=== PATIENT | female | born 1995 | race African-American/Black ===

== ENCOUNTER 2022-01-02 10:02 | Emergency (ER) | payer OTHER, SELFPAY ==
[2022-01-02 10:20] VITALS: BP 123/73; PULSE 71; RESP 18; TEMP 36.1; O2SAT 100
--- NOTE | 2022-01-02 10:23 | ED.BACK ---
HPI - Back Pain/Injury General Chief Complaint: Back Pain/Injury Stated Complaint: LOWER BACK PAIN X1D Time Seen by Provider: 01/02/22 10:09 History of Present Illness HPI Narrative: 26-year-old female presents to the emergency room today for complaints of low back pain. She denies having any dysuria or hematuria. She says that she had a positive test at the end of last month. She then started having some bleeding and cramping on December 23. She just assumed that she was probably having a miscarriage and did not get checked out at that time. She has not had a test since then. She is no longer having any vaginal bleeding. She describes a weird feeling in her lower abdomen and some occasional cramping. No fever or chills. No nausea or vomiting. No flank pain. Patient is a . She has had 3 abortions and 1 previous natural miscarriage. Related Data Allergies Allergy/AdvReac Type Severity Reaction Status Date / Time cefazolin Allergy Severe Swelling Verified 01/02/22 10:23 Review of Systems Review of Systems: CONSTITUTIONAL: Denies fever, chills, or sweats. EYES: Denies visual changes, redness, or discharge. ENT: Denies rhinorrhea, congestion, sore throat, or otalgia. CARDIOVASCULAR: Denies chest pain, palpitations, or edema. RESPIRATORY: Denies cough or dyspnea. GASTROINTESTINAL: Denies abdominal pain, nausea, vomiting, or diarrhea. GENITOURINARY: Denies dysuria or hematuria. Denies flank pain. No vaginal bleeding or spotting. SKIN: Denies rash or itching. MUSCULOSKELETAL: Low back pain. NEUROLOGIC: Denies headache, numbness, dizziness, or weakness. PSYCHIATRIC: Denies anxiety or depression. Exam Narrative: GENERAL: Well-appearing, well-nourished, and in no acute distress. HEAD: Normocephalic, atraumatic. EYES: PERRLA and EOMI. NECK: Supple. No adenopathy or masses. No carotid bruits or JVD CHEST: Clear to auscultation. No respiratory distress. No wheezes rales or rhonchi HEART: Regular rate and rhythm. No murmur heard. Normal peripheral pulses. ABDOMEN: Soft, nontender, nondistended, normal active bowel sounds. EXTREMITIES: Normal range of motion. No edema. SKIN: Warm, dry, no rash. NEURO: No focal deficits. Alert and oriented x3. PSYCH: Normal mood and affect. Course Vital Signs Vital signs: Vital Signs Temperature 36.1 C L 01/02/22 10:20 Pulse Rate 71 01/02/22 10:20 Respiratory Rate 18 01/02/22 10:20 Blood Pressure 123/73 01/02/22 10:20 Pulse Oximetry 100 01/02/22 10:20 Oxygen Delivery Room Air 01/02/22 10:20 Temperature 36.1 C L 01/02/22 10:20 Pulse Rate 71 01/02/22 10:20 Respiratory Rate 18 01/02/22 10:20 Blood Pressure 123/73 01/02/22 10:20 Pulse Oximetry 100 01/02/22 10:20 Oxygen Delivery Room Air 01/02/22 10:20 MDM - Back Pain/Injury Lab Data Attestation: I reviewed the patient's lab results. Labs: Lab Results 01/02/22 Range/Units 10:40 Urine Color Yellow (Yellow) Urine Appearance Clear (Clear) Urine pH 6.0 (5.0-9.0) Ur Specific [place] 1.020 (1.001-1.035) Urine Protein Negative (Negative) mg/dL Urine Glucose (UA) Negative (Negative) mg/dL Urine Ketones Negative (Negative) mg/dL Ur Blood (Man) Negative (Negative) Urine Nitrate Negative (Negative) Urine Bilirubin Negative (Negative) Urine Urobilinogen 0.2 (<2.0) mg/dL Leukocyte Esterase Rfl Negative (Negative) JOHNNY/UL UCG Bedside Result Negative Reference Range: Negative Discharge Plan Discharge Clinical Impression: Low back pain Patient Disposition: Home, Self-Care Condition: Stable Instructions: Antibiotic Form, Acute Low Back Pain (ED) Additional Instructions: Take Naprosyn and Flexeril as needed for low back pain. Follow-up with your primary care provider or ELECTROLYSIS INVESTIGATOR provider in 2 to 3 days. Prescriptions: New naproxen [Naprosyn] 50
[2022-01-02 10:49] LABS: Appearance Urine Clear (Clear); Bilirubin Urine Negative (Negative); Blood Urine Negative (Negative); Color Urine Yellow (Yellow); Glucose Urine UA Negative (Negative); Ketones Urine Negative (Negative); Leukocyte Esterase Ur Negative LEU/UL (Negative); Nitrate Urine Negative (Negative); Protein Urine Negative (Negative); Urobilinogen Urine 0.2 mg/dL (<2.0)
--- NOTE | 2022-01-02 11:14 | PC.NURSE ---
Per NOTCHING MACHINE OPERATOR request patient's bedside was completed at this time , for the second time. Result is negative. NOTCHING MACHINE OPERATOR notified at this time. Returned to room to find patient not present at this time to inform that second test is confirmed negative.
[2022-01-02 11:34] LABS: Add Urine Microscopic? NO
== END 2022-01-02 11:26 | disposition left against medical advice (07) ==
PROVIDERS: Emergency Provider Nurse Practitioner Family
DX: M54.50 Low back pain, unspecified (principal)
CPT/HCPCS: 81003; 81025; 99283

== ENCOUNTER 2023-04-26 00:09 | Emergency (ER) | payer BC, SELFPAY ==
[2023-04-26 00:11] VITALS: BP 126/65; PULSE 73; RESP 20; TEMP 36.1; O2SAT 100
--- NOTE | 2023-04-26 01:22 | ED.DENTAL ---
HPI - Dental/Oral General Chief complaint: Dental/Oral Stated complaint: Left upper dental pain Time Seen by Provider: 04/26/23 00:33 Source: patient Mode of arrival: ambulatory Limitations: no limitations History of Present Illness HPI Narrative: Patient is a 28-year-old female who presents to the ED with report of left upper dental pain. Patient reports her left upper wisdom tooth, tooth 16 cracked a few days ago. She has had worsening pain over last several days, no improvement with Tylenol and ibuprofen at home. Patient has an appointment with her dentist on Thursday, but states pain became severe tonight which prompted her presentation. Pain worse with chewing/eating. Patient denies difficulty breathing or swelling. Denies vomiting. Denies fevers. Denies drainage from tooth. Related Data Allergies Allergy/AdvReac Type Severity Reaction Status Date / Time cefazolin Allergy Severe Swelling Verified 04/26/23 00:14 Review of Systems Review of Systems: CONSTITUTIONAL: Denies fever, chills, or sweats. ENT: See HPI. RESPIRATORY: Denies dyspnea. GASTROINTESTINAL: Denies vomiting. All systems reviewed & are unremarkable except as noted in HPI and below Exam Narrative: GENERAL: Mildly uncomfortable appearing, well-nourished, non-toxic, in no acute distress. HEAD: Normocephalic, atraumatic. ENT: L upper wisdom tooth, #16, cracked with somewhat jagged edges. No obvious exposed root. TTP along gumline surrounding tooth. No focal abscess or fluctuance. No stridor. No trismus. Tolerating secretions. No other significant dental decay/caries noted. RESPIRATORY: Airway patent, respirations nonlabored. CARDIOVASCULAR: Regular rate and rhythm. MUSCULOSKELETAL: Moves all extremities. No gross deformities. SKIN: Warm, dry, normal color. NEURO: A&O X3. Speech clear. PSYCHIATRIC: Appropriate mood and affect. Normal interaction. Course Vital Signs Vital signs: Vital Signs Temperature 97.0 F L 04/26/23 00:11 Pulse Rate 73 04/26/23 00:11 Respiratory Rate 20 04/26/23 00:11 Blood Pressure 126/65 04/26/23 00:11 Pulse Oximetry 100 04/26/23 00:11 Oxygen Delivery Room Air 04/26/23 00:11 Temperature 97.0 F L 04/26/23 00:11 Pulse Rate 73 04/26/23 00:11 Respiratory Rate 20 04/26/23 00:11 Blood Pressure 126/65 04/26/23 00:11 Pulse Oximetry 100 04/26/23 00:11 Oxygen Delivery Room Air 04/26/23 00:11 MDM - Dental/Oral MDM Narrative Medical decision making narrative: Patient's pain is consistent with dental fracture. There are no focal signs of space-occupying abscess. The patient is controlling secretions well without signs of airway compromise. Patient is felt reasonable for outpatient follow-up with dental evaluation. Has appt with dentist on thursday. Will cover for potential infection with abx. Pain medication sent to pharmacy. Patient given return precautions. D/C in stable condition. Medical Records Attestation: I reviewed the patient's medical records. Discharge Plan Discharge Clinical Impression: Toothache Fracture of tooth Qualifiers: Encounter type: initial encounter Fracture type: closed Qualified Code(s): S02.5XXA - Fracture of tooth (traumatic), initial encounter for closed fracture Patient Disposition: Home, Self-Care Condition: Stable Instructions: Antibiotic Form, Toothache (ED) Additional Instructions: Take antibiotics as prescribed. Continue Tylenol and ibuprofen as needed for pain. Oxycodone as needed for more severe pain. Follow-up with your dentist for further evaluation. Return to the ED if you experience severe pain, unable to keep down food or drink, difficulty breathing or swelling, or any other symptoms of concern. Prescriptions: New oxycodone 5 mg tablet 5 mg PO Q6H PRN (Reason: pain) Qty: 10 0RF clindamycin HCl 150 mg capsule 450 mg PO Q6H 7 Days Qty: 84 0RF No Action naproxen [Naprosyn] 500 mg tablet 500 mg PO BID
[2023-04-26] MEDS: ACETAMINOPHEN 500 MG TABLET 1000 MG PO (01:50)
[2023-04-26] MEDS: CLINDAMYCIN HCL 150 MG CAP 450 MG PO (01:50)
== END 2023-04-26 02:10 | disposition home or self-care (01) ==
PROVIDERS: Emergency Provider Physician Assistant; PCP Family Medicine
DX: S02.5XXA Fracture of tooth (traumatic), initial encounter for closed fracture (principal); X58.XXXA Exposure to other specified factors, initial encounter
CPT/HCPCS: 99283; A9270

== ENCOUNTER 2024-10-23 10:06 | Observation (INO) | payer BC, SELFPAY ==
[2024-10-23] VITALS (10 sets, daily range): BP systolic 116; BP diastolic 76; PULSE 72–84; RESP 18; TEMP 36.8; O2SAT 100; BMI 25.4
--- OUTSIDE RECORDS SUMMARY | 2024-10-23 10:22 | XMS_ITS | Referral Summary ---
[facility] Address [address] [place] [id number] Care Team Providers Care Structural Steel Equipment Erector Name Role Phone Unknown, [place] Primary Care Provider Unavail able Allergies No known active allergies Social History Tobacco Use Types Packs/Day Years Used Date Smoking Tobacco: Never Assessed Personal Safety Answer Date Recorded Getting School Help Needed Not on file 07/02 Comments Unknown Sex and Gender Information Value Date Recorded Sex Assigned at Not on file 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
--- OUTSIDE RECORDS SUMMARY | 2024-10-23 10:22 | XMS_ITS | Clinical Summary ---
Author Organization [facility] Address [address] [place] [address] Care Team Providers Care Blood Bank Custodian Name Role Phone None, Provider MD Primary Care Provider Unavaila ble Allergies Active Allergy Reactions Criticality Noted Date Comments Cefazolin Swelling 02/05/2018 Tramadol Vomiting 11/10/2019 Medications ondansetron 4 MG disintegrating tablet Take 1 tablet (4 mg total) by mouth every 8 (eight) hours as needed for Nausea. 20 tablet 0 Active HYDROcodone-acetami nophen (NORCO) 5-325 MG tabletIndications:A cute Pain < 7 Day Supply Take 1-2 tablets by mouth every 6 (six) hours as needed for Pain. Indications: Acute Pain < 7 Day Supply 30 tablet 0 Active Active Problems Problem Noted Date Diagnosed Date Normal labor ([facility]) 11/10/2019 examination following vaginal deliver y ([facility]) 11/10/2019 Cholecystitis 11/10/2019 Vaginal delivery ([facility]) 03/31/2016 Encounter for supervision of normal in third trimester ([facility]) 03/30/2016 H/O section 03/30/2016 Estimated Date of Delivery Comme nts Yes 03/06/2025 Encounters Date Type Department Care Team Description 10/13/2024 9:35 PM CDT - 10/13/2024 10:14 PM CDT Emergency [facility] [place] [address] Headache; Constipation Discharge Disposition: Left Against Medical Advice 10/13/2024 Travel from Last 3 Months Family History Medical History Relation Comments Hypertension Father cholecystectomy Mother Relation Status Comments Father Mother Social History Tobacco Use Types Packs/Day Years Used Date Smoking Tobacco: Never Smokeless Tobacco: Never Alcohol Use Standard Drinks/Week Comments Yes 0 (1 standard drink = 0.6 oz pur e alcohol) occassional AUDIT-C Answer Date Recorded Frequency of Alcohol Consumption Never 02/05/2018 Average Number of Drinks Not on file 018 Frequency of Binge Drinking Not on file 01/18 Estimated Date of Delivery Comme nts Yes 03/06/2025 Sex and Gender Information Value Date Recorded Sex Assigned at Not on file Legal Sex Female 8:27 PM CDT Gender Identity Not on file Sexual Orientation Not on file Last Filed Vital Signs Vital Sign Reading Time Taken Comments Blood Pressure 116/80 10/13/2024 9:05 PM CDT Pulse 81 10/13/2024 9:05 PM CDT Temperature 37.3 C (99.2 F) 10/13/2024 9:05 PM CDT Respiratory Rate 18 10/13/2024 9:05 PM CDT Oxygen Saturation 100% 10/13/2024 9:05 PM CDT Inhaled Oxygen Concentration - - Weight 65.2 kg (143 lb 11.8 oz) 12/31/2021 9:21 AM CDT Height 157.5 cm (5' 2) 10/13/2024 9:05 PM CDT Body Mass Index 26.29 12/31/2021 9:21 AM CDT Plan of Treatment Health Maintenance Due Date Last Done Comments Cervical Cancer Screening Pap Smear (Age 21 to 29) Every 3 Years 1995 Cervical Cancer Screening 1995 Annual Physical 1998 Hepatitis C 2013 COVID-19 Vaccine ( season) 2023 RSV Immunization or 60+ Years (1 - Risk 1-dose series) 01/09/2025 DTaP, Tdap and Td Vaccines (4 - Td or Tdap) 10/17/2026 10/17/2016, 03/31/2016, 12/04/1999, Additional history exists Hepatitis B Vaccines Completed 1995, 1995, 1995 HPV Vaccines Aged Out No longer eligi ble based on patient's age to complete this topic Meningococcal B Vaccine Aged Out No l onger eligible based on patient's age to complete this topic Meningococcal Vaccine Aged Out No marva ryland eligible based on patient's age to complete this topic Pneumococcal Vaccine: Pediatrics (0 to 5 Years) and At-Risk Patients (6 to 49 Years) Aged Out No longer eligible based on patient's age to complete this topic RSV Immunizations Under 20 Months Aged Out No longer eligible based on patient's age to complete this topic Insurance Care Teams Blood Bank Custodian Relationship Specialty Start Date End Date None, ProviderMD PCP - General 02/05/18
--- OUTSIDE RECORDS SUMMARY | 2024-10-23 10:22 | XMS_ITS | Clinical Summary ---
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
--- OUTSIDE RECORDS SUMMARY | 2024-10-23 10:22 | XMS_ITS | Data Portability ---
Author Organization [facility] ANNALISEShelby Trinidad Address [address] [place] [address] Assessment No assessment recorded. Plan of Treatment Reminders Order Date Submit Date Provider Last Modified By Organization Details Last Modified Time Details Appointments None recorded. Lab urinalysis , dipstick 2017 018 ANOOP In-Office Order, Internal Use Only DO Not Attach Compendium DO Not Attach Compendium, Do Not Delete/merge, [id number] 8 17:30:41 pap, LB + CT/NG/TV + reflex HR HPV 2017 018 [facility] (Lab), [address] [place], [address], 8 13:58:21 test, urine 2017 018 ANOOP In-Office Order, Internal Use Only DO Not Attach Compendium DO Not Attach Compendium, Do Not Delete/merge, [id number] 8 17:29:53 Referral None recorded. Procedures None recorded. Surgeries None recorded. Imaging XR, chest, 2 view 2016 017 [email or web address] Not available 7 20:18:30 Medication Orders metronidaz ole 500 mg tablet 2017 018 [facility] [place], [address] , [place], [address], 8 14:55:13 Patient TargetsNo targets recorded. Patient InstructionsNo instructions recorded. Reason for Referral None Reported. Results Created Date Observation Date Name Description Value Unit Range Abnormal Flag Note LastModifiedBy Organization Detail LastModifiedTime 09/02/19 18 09/04/2017 pap, LB + CT/NG /TV + refle x HR HPV diagnosis: [facility] NEGAT TOM FOR INTRA EPITH ELIAL LESIO N AND FIONA RODRIGUEZ . TRICH ZAIRA S AVA DARRELL IS PRESE NT. Perfo rmed at: WB Not Available [facility] (Lab) [address] [facility], [place], [address], 09/04/2017 10:15:55 09/02/19 18 09/04/2017 pap, LB + CT/NG /TV + refle x HR HPV specimen adequacy: [facility] Satis facto ry for evalu ation . Endoc ervic al and/o r squam ous metap lasti c cells (endo cervi lawrence compo nent) are prese nt. Perfo rmed at: WB Not Available [facility] (Lab) [address] [place], [address], 09/04/2017 10:15:55 09/02/19 18 09/04/2017 pap, LB + CT/NG /TV + refle x HR HPV performed by: [facility] Aida alfaro, Cytot echno rafi t (ASCP ) Perfo rmed at: WB Not Available [facility] (Lab) [address] [facility], [place], [address], 09/04/2017 10:15:55 09/02/19 18 09/04/2017 pap, LB + CT/NG /TV + refle x HR HPV Pap smear, 1 slide . Perfo rmed at: WB Not Available [facility] (Lab) [address] [facility], [place], [address], 09/04/2017 10:15:55 09/02/19 18 09/04/2017 pap, LB + CT/NG /TV + refle x HR HPV pathologist provided ICD10 [facility] R87.5 Perfo rmed at: WB Not Available [facility] (Lab) [address] [facility], [place], [address], 09/04/2017 10:15:55 09/02/19 18 09/04/2017 pap, LB + CT/NG /TV + refle x HR HPV note: PAPSMR The Pap smear is a scree nazia test desig ilda to aid in the detec tion of irma ligna nt and malig nant condi tions of the uteri ne cervi x. It is not a diagn ostic proce dure and shoul d not be used as the sole means of detec ting cervi lawrence cance r. Both false -posi tive and false -nega tive repor ts do occur . . Perfo rmed at: WB Not Available [facility] (Lab) [address] [place], [address], 09/04/2017 10:15:55 09/02/19 18 09/04/2017 pap, LB + CT/NG /TV + refle x HR HPV test methodology: IGLPAP This liqui d based ThinP rep(R ) pap test was scree ilda with the use of an image guide anmol workman. Perfo rmed at: WB Not Available [facility] (Lab) [address] [facility], [place], [address], 09/04/2017 10:15:55 09/02/19 18 09/04/2017 pap, LB + CT/NG /TV + refle x HR HPV comments NEGHPV The HPV DNA refle x crite segundo were not met with this speci men resul t there fore, no HPV testi ng was perfo rmed. . Perfo rmed at: WB Not Available [facility] (Lab) [address] [facility], [place], [address], 09/04/2017 10:15:55 09/02/19 18 09/04/2017 pap, LB + CT/NG /TV + refle x HR HPV chlamydia, nuc. acid Negati ve negati ve Perfo rmed at: =G Not Available [facility] (Lab) [address] [facility], [place], [address], 09/04/2017 10:15:55 09/02/19 18 09/04/2017 pap, LB + CT/NG /TV + refle x HR HPV gonococcus, nuc. acid amp Negati ve negati ve Perfo rmed at: =G Not Available [facility] (Lab) [address] [place], [address], 09/04/2017 10:15:55 09/02/19 18 09/04/2017 pap, LB + CT/NG /TV + refle x HR HPV trich vag by SAQIB Positi ve negati ve abnormal . Perfo rmed at: =G Not Available [facility] (Lab) [address], [place], [address], 09/04/2017 10:15:55 09/02/19 18 09/01/2017 urina lysis , dipst ick Leukocytes Negati ve Not Available In-Office Order Internal Use Only DO Not Attach Compendium DO Not Attach Compendium, Do Not Delete/merge, 09/01/2017 16:16:36 09/02/19 18 09/01/2017 urina lysis , dipst ick Nitrite negati ve Not Available In-Office Order Internal Use Only DO Not Attach Compendium DO Not Attach Compendium, Do Not Delete/merge, 09/01/2017 16:16:36 09/02/19 18 09/01/2017 urina lysis , dipst ick Urobilinogen 1 Not Available In-Of fice Order Internal Use Only DO Not Attach Compendium DO Not Attach Compendium, Do Not Delete/merge, 09/01/2017 16:16:36 09/02/19 18 09/01/2017 urina lysis , dipst ick Protein Negati ve Not Available In-Office Order Internal Use Only DO Not Attach Compendium DO Not Attach Compendium, Do Not Delete/merge, 09/01/2017 16:16:36 09/02/19 18 09/01/2017 urina lysis , dipst ick pH 7.0 Not Available In-Office Order Internal Use Only DO Not Attach Compendium DO Not Attach Compendium, Do Not Delete/merge, 09/01/2017 16:16:36 09/02/19 18 09/01/2017 urina lysis , dipst ick Blood Negati ve Not Available In-Office Order Internal Use Only DO Not Attach Compendium DO Not Attach Compendium, Do Not Delete/merge, [id number] 09/01/2017 16:16:36 09/02/19 18 09/01/2017 urina lysis , dipst ick Specific Palmer 1.025 Not Available In-Off ice Order Internal Use Only DO Not Attach Compendium DO Not Attach Compendium, Do Not Delete/merge, [id number] 09/01/2017 16:16:36 09/02/19 18 09/01/2017 urina lysis , dipst ick Ketone Negati ve Not Available In-Office Order Internal Use Only DO Not Attach Compendium DO Not Attach Compendium, Do Not Delete/merge, [id number] 09/01/2017 16:16:36 09/02/19 18 09/01/2017 urina lysis , dipst ick Bilirubin Negati ve Not Available In-Office Order Internal Use Only DO Not Attach Compendium DO Not Attach Compendium, Do Not Delete/merge, [facility] 09/01/2017 16:16:36 09/02/19 18 09/01/2017 urina lysis , dipst ick Glucose Negati ve Not Available In-Office Order Internal Use Only DO Not Attach Compendium DO Not Attach Compendium, Do Not Delete/merge, [facility] 09/01/2017 16:16:36 09/02/19 18 09/01/2017 pregn darryn test, urine HCG negati ve Not Available In-Office Order Internal Use Only DO Not Attach Compendium DO Not Attach Compendium, Do Not Delete/merge, [facility] 09/01/2017 16:16:28 Result Notes None recorded. Problems No Known Problems Procedures Surgical History Date Name Laterality Status Provider Name and Address Organization Details Recorded Time 8 Date of Last Pap Smear completed Lennie Fernandes MA [facility] 09/01/2017 15:24:34 Dilation and Curettage completed Ashlie Beach [facility] 09/01/2017 15:43:31 delivery completed Lennie Fernandes MA [facility] 09/01/2017 15:30:15 Imaging Results None recorded. Procedure Notes None recorded. Medical Equipment None Reported. Allergies Allergen ID Allergen Name Allergen Category Reaction Reaction Severity Criticality Documentation Date Start Date Code Code System Note Provider Name and Address Organization Details Recorded Time 873787 cefazolin sodium medicatio n facial swelling moderate Not available 09/01/2017 87598 1 RxNorm Lennie Fernandes MA [facility] 8 15:31:27 Medications Name Sig Start Date Stop Date Status Note LastModified by Organization Details LastModified Time metronidazole 500 mg tablet Take 4 tablets every day by oral route. 2017 active Not Available Not Available Not Avai lable Vitals Date Recorded Body height Body mass index (BMI) Body weight Systolic And Diastolic Provider Name and Address Organization Details Last Updated DateTime 09/01/2017 157.48 cm 26.2 kg/m2 57545.71 g 100/70 mm[Hg] Lennie Fernandes MA [facility] 09/01/2017 15:23:03 Date Recorded Body height Body mass index (BMI) Body weight Systolic And Diastolic Provider Name and Address Organization Details Last Updated DateTime 09/15/2017 157.48 cm 26.3 kg/m2 08771.3 g 130/70 mm[Hg] Octavia Marie MA [facility] 09/15/2017 14:46:46 Date Recorded Heart rate Oxygen saturation Oxygen saturation in Arterial blood by Pulse oximetry Body height Body mass index (BMI) Body weight Body temperature Systolic And Diastolic Provider Name and Address Organization Details Last Updated DateTime 7 98 /min 98 % 98 % 157.48 cm 27.1 kg/m2 81294.7 7 g 98.3 [degF] 110/60 mm[Hg] Kiersten Holt [facility] 7 12:10:56 Social History Question Answer Notes LastModified by Organizat ion Details LastModified Time Tobacco Smoking Status Never Smoker Kiersten winter [facility] 10/17/2016 12:11:00 Which Illicit Or Recreational Drugs Have You Used? Denied Information not available 09/01/2017 Education 12 Information no t available 09/01/2017 Live Alone Or With Others? Alone With Children Information not available 09/01/2017 What Was The Date Of Your Most Recent Tobacco Screening? 09/01/2017 Information not available 11/11/2018 How Many Children Do You Have? 2 Information not available 09/01/2017 Performs Monthly Self-breast Exam? No Information not available 09/01/2017 Do You Use Protection During Sex? Usually Information not available 09/01/2017 What Is Your Relationship Status? Single Information not available 09/01/2017 Are You Sexually Active? Yes Information not available 09/01/2017 How Much Tobacco Do You Smoke? No [email or web address] Information not available 09/01/2017 Sex: Unknown Functional Status Question Answer Note LastModified by Organizat ion Details LastModified Time What is your level of alcohol consumption? 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 Family History Nothing Reported. Medical History Condition Response Other N High Blood Pressure N Breast Cancer N Thyroid Problems N Kidney or Bladder Problems N Lung Disease N Depression N Blood Clots N GI Problems N Acne N Breast Problem N Eating Disorder N Anemia N Anesthesia Complications N Headaches/Migraines N Ovarian Cancer N Diabetes N Anxiety Disorder N Muscle, Joint, or Bone Problems N Blood Transfusions N Seizures/Epilepsy N Polyps N Infertility N Acid Reflux (GERD) N Cancer N Abuse/Domestic Violence N Asthma N Endometriosis N High Cholesterol N Hepatitis N Liver Disease N Heart Disease N Pre-Eclampsia N Osteoporosis N Gynecological History Statement/Question Response Flow Moderate On BCP's at Conception? Y STIs/STDs Y HPV Vaccine N Duration of Flow (days) 5 Most Recent Mammogram Age at Menarche 12 Current Control Method Condoms Age at First Child 4 Sexually Active? Y Menses Monthly Y Date of Last Pap Smear 09/01/2017 Sexual Problems? N LMP Desired Control Method Condoms Obstetrics History GPAL:G 3 P 2 0 1 2 Type Value Full Term 2 Spontaneous 1 Living 2 Total 3 Immunizations Vaccine Type Date Status Note Provider Nam e and Address Organization Details Recorded Time Tdap 7 completed Not Available [facility] 05[facility]07/2019 02:51:05 DTP 6 completed Kier[place], [place] [facility] 10/29/2016 14:39:14 DTP 6 completed [place] [facility] 10/29/2016 14:39:21 DTP 6 completed [place] [facility] 10/29/2016 14:39:27 DTP 7 completed [place] [facility] 10/29/2016 14:39:32 DTP 0 completed [place] [facility] 10/29/2016 14:39:37 polio, unspecified formulation 6 completed [place] [facility] 10/29/2016 14:51:09 polio, unspecified formulation 6 completed [place] [facility] 10/29/2016 14:51:15 polio, unspecified formulation 6 completed [place] [facility] 10/29/2016 14:51:21 polio, unspecified formulation 0 completed [place] [facility] 10/29/2016 14:51:31 Hep B, unspecified formulation 5 completed [place] [facility] 10/29/2016 14:51:44 Hep B, unspecified formulation 5 completed [place] [facility] 10/29/2016 14:51:50 Hep B, unspecified formulation 6 completed [place] [facility] 10/29/2016 14:51:57 Hib, unspecified formulation 6 completed [place] [facility] 10/29/2016 14:52:08 Hib, unspecified formulation 6 completed [place] [facility] 10/29/2016 14:52:13 Hib, unspecified formulation 6 completed [place] [facility] 10/29/2016 14:52:17 Hib, unspecified formulation 7 completed [place] [facility] 10/29/2016 14:52:21 MMR 6 completed [place] [facility] 10/29/2016 14:52:35 MMR 0 completed [place] [facility] 10/29/2016 14:52:42 varicella 0 completed [place] [facility] 10/29/2016 14:52:54 Past Encounters Encounter ID Performer Location Encounter Start Date Encounter Closed Date Diagnosis/Indication Diagnosis SNOMED-CT Code Diagnosis ICD10 Code Diagnosis Note [id number] Sri Mac, [facility] [address] [place] [address] 10/17/2016 11:52:15 10/23/2016 16:06:12 Tuberculosis screening 896973452 Z11.1 risk vs benefit explained. pt states she does not have time for 2-step ppd; as she needs her results completed by 09/27. History an d physical examination, [facility] 26322652 Z02.0 negative assessment . no restrictio ns indicated. [id number] Ashlie Beach MD [address] [address] 09/01/2017 15:10:12 09/01/2017 16:17:31 Gynecologic examination 42132586 Z01.419 Dysuria 86423544 R30.0 Negative urine dipstick. [id number] Ashlie Beach MD [address] [address] 09/15/2017 14:38:09 09/15/2017 14:59:00 Infection by Trichomonas 05472407 A59.9 Discussed transmissi on. Recommend partner therapy. Condoms offered. OCTAVIA in 3 weeks. Health Concerns Section Related Observation LastModified by Organization Detai ls LastModified Time None Recorded Concern Status LastModified by Organization Details LastModified Time None Recorded Advance Directives Directive None Recorded Payers Insurance Date Sequence Insurance Name Policy Number Policy Ramirez Covered Member ID Ramirez Member ID Guarantor Name 09/01/2017 1 [place] [employer] James Donald [id number] James Donald 06/03/2019 1 [facility] (MEDICAID HMO) James Donald [id number] James Donald 06/03/2019 1 [facility] (MEDICAID REPLACEMENT - HMO) [id number] Braydonivana Donald [id number] James Donald 06/03/2019 [facility] ADULT BASIC EDUCATION PROGRAM James Aguilarneelam [id number] James Aguilarneelam Notes Date Note Type Note Provider Name and Address Organization Details Recorded Time 09/01/2017 text/html 22 y.o. with LMP 08/22/17. Here for annual exam. Has recurrent UTIs. Last treated for a UTI in June of this year. Thinks she has another UTI because she has pain occasionally with urination. Not interested in contraception. SUDHIR Sanchez SIAmos 09/01/2017 16:17:17 09/15/2017 text/html 22 y.o. here for test results. SUDHIR Sanchez 09/15/2017 14:58:50 OBGyn Episode No OBEpisode recorded.
--- OUTSIDE RECORDS SUMMARY | 2024-10-23 10:23 | XMS_ITS | Data Portability ---
Author Organization [employer], Main Office Address [address] [place] [address] Assessment Encounter Date Assessment Date Assessment LastModified by Organization Details LastModified Time 09/09/2022 09/09/2022 R anterior chest lesion, irregular supraclavicular mass present for 5 years. Will excise in the office under local anesthesia. [email or web address] Not available 09/09/2022 11:18:09 10/07/2022 10/07/2022 s/p excision of epidermal inclusion cyst. Stitches removed today. patient doing well, no post procedural concerns. [email or web address] Not available 10/07/2022 12:15:06 Plan of Treatment Reminders Order Date Submit Date Provider Last Modified By Organization Details Last Modified Time Details Appointments None record ed. Lab None record ed. Referral None record ed. Procedures None record ed. Surgeries None record ed. Imaging None record ed. Medication Orders None record ed. Patient TargetsNo targets recorded. Patient InstructionsNo instructions recorded. Reason for Referral None Reported. Results Created Date Observation Date Name Description Value Unit Range Abnormal Flag Note LastModifiedBy Organization Detail LastModifiedTime Result Notes None recorded. Problems Name Problem SNOMED Code Status Onset Date Resolution Date Notes Provider Name and Address Organization Details Recorded Time Mass of skin of chest 8480668077274 9103 Active 2022 Rigo fabian MD [address], [facility] [address], [place], [address] , [employer] 14:20:13 Epidermoid cyst of skin of chest 629573878 Active 2022 Rigo fabian MD [address] [facility], [place], [address], [employer] [facility] [employer] [facility] 3 14:47:06 Problem Notes None recorded. Procedures Surgical History Date Name Laterality Status Provider Name and Address Organization Details Recorded Time 3 Excision Cyst Multilayer completed Rigo solis MD [address] [facility], [facility] [address], [place], [address], [facility] [employer] [facility] 09/30/2022 13:03:47 3 excision completed Etta Morrison MA [facility] [employer] [facility] 10/07/2022 11:54:02 Imaging Results None recorded. Procedure Notes None recorded. Medical Equipment None Reported. Allergies Allergen ID Allergen Name Allergen Category Reaction Reaction Severity Criticality Documentation Date Start Date Code Code System Note Provider Name and Address Organization Details Recorded Time 40669 cefazolin sodium medicatio n swelling severe Not available 09/09/2022 1 Rx[facility] Lakshmi [facility], [facility] [employer] [facility] 3 10:31:52 Medications Name Sig Start Date Stop Date Status Note LastModified by Organization Details LastModified Time cetirizine 10 mg tablet TAKE 1 TABLET BY MOUTH EVERY MORNING active Not Available Not Available No t Available lamotrigine 25 mg tablet TAKE 1 TABLET BY MOUTH EVERY DAY active Not Available Not Available No t Available alprazolam 0.5 mg tablet TAKE 1 TABLET BY MOUTH ONCE DAILY FOR ANXIETY ONSET active Not Available Not Available No t Available alprazolam 0.25 mg tablet TAKE 1 TABLET BY MOUTH NEEDED FOR TREATMENT OF PANIC ATTACK ONSET active Not Available Not Available No t Available ergocalcifero l (vitamin D2) 1,250 mcg (50,000 unit) capsule TAKE 1 CAPSULE BY MOUTH 1 TIME A WEEK FOR 12 WEEKS active Not Available Not Available No t Available escitalopram 20 mg tablet TAKE 1 TABLET BY MOUTH EVERY DAY active Not Available Not Available No t Available lamotrigine active Not Available Not A vailable Not Available alprazolam active Not Available Not Av ailable Not Available Lexapro active Not Available Not Avail able Not Available 28 mg iron-800 mcg tablet TAKE 1 TABLET BY MOUTH EVERY DAY. active Not Available Not Available N ot Available Vitals Date Recorded Heart rate Body temperature Respiratory rate Oxygen saturation Oxygen saturation in Arterial blood by Pulse oximetry Body height Body mass index (BMI) Body weight Systolic And Diastolic Provider Name and Address Organization Details Last Updated DateTime 3 78 /min 97.6 [degF] 12 /min 97 % 97 % 157.48 cm 8.4 kg/m2 40460.2 5 g 110/70 mm[Hg] Lakshmi Rasheednshaw [facility] [employer] [facility] 3 10:31:11 Date Recorded Body height Body mass index (BMI) Body weight Body temperature Heart rate Oxygen saturation Oxygen saturation in Arterial blood by Pulse oximetry Systolic And Diastolic Provider Name and Address Organization Details Last Updated DateTime 3 157.48 cm 26.5 kg/m2 73201.8 9 g 98.6 [degF] 80 /min 98 % 98 % 112/72 mm[Hg] RED Yin [facility] [employer] [facility] 3 12:22:01 Date Recorded Body height Body mass index (BMI) Body weight Body temperature Heart rate Oxygen saturation Oxygen saturation in Arterial blood by Pulse oximetry Respiratory rate Systolic And Diastolic Provider Name and Address Organization Details Last Updated DateTime 3 157.48 cm 26.5 kg/m2 43710.8 9 g 98.6 [degF] 76 /min 98 % 98 % 12 /min 110/70 mm[Hg] Etta Morrison MA [facility] [employer] [facility] 3 11:51:36 Social History Question Answer Notes LastModified by [employer] Details LastModified Time Tobacco Smoking Status Current Every Day Smoker Lakshmi Rasheednshaw [facility] [employer] [facility] 09/09/2022 10:34:02 What Is Your Level Of Caffeine Consumption? Occasional Information not available 09/08/2022 Sex: Unknown Functional Status Question Answer Note LastModified by [employer] Details LastModified Time Do you use any illicit or recreational drugs? No Information not available 09/08/2022 What is your level of alcohol consumption? Occasional Information not available 09/08/2022 Mental Status None recorded. Family History Relationship Description Onset Age of this Age Resolved Age Notes LastModified by Organization Details LastModified Time Unspecified Relation Diabetes mellitus [email or web address] Not available 08/19 10:33:42 Medical History Condition Response OTHER # 1 Y DEPRESSION (INCLUDING POST ) Y ANXIETY DISORDER Y Gynecological HistoryNo gynecological history recorded. Obstetrics History GPAL:G 0 P 0 0 0 0 Past Encounters Encounter ID Performer Location Encounter Start Date Encounter Closed Date Diagnosis/Indication Diagnosis SNOMED-CT Code Diagnosis ICD10 Code Diagnosis Note [id number] Rigo verdin MD [facility] General Surgery [address] [place] [address] 1 09/09/2022 10:06:45 09/09/2022 12:37:32 Mass of skin of chest 4189387547 8566936 R22.2 [id number] Rigo verdin MD [facility] General Surgery [address] [place] [address] 09/30/2022 12:04:51 10/03/2022 09:05:18 Mass of skin of chest 8790708769 0204157 R22.2 Lesion excised from R supraclavi cular region today. Specimen sent to pathology. F/u 10-14 days for suture removal. Contact the office sooner if concerns arise. Pt agreeable. [id number] Rigo verdin MD [facility] General Surgery [address] [place] [address] 1 10/07/2022 11:38:28 10/09/2022 13:26:09 Epidermoid cyst of skin of chest 483784373 L72.0 Health Concerns Section Related Observation LastModified by Organization Detai ls LastModified Time None Recorded Concern Status LastModified by Organization Details LastModified Time None Recorded Advance Directives Directive None Recorded Payers Insurance Date Sequence Insurance Name Policy Number Policy Ramirez Covered Member ID Ramirez Member ID Guarantor Name 10/14/2022 1 [facility] (MEDICAID REPLACEMENT - HMO) [id number] James Donald [id number] James Donald Notes Date Note Type Note Provider Name and Address Organization Details Recorded Time 09/09/2022 text/html Patient presents to discuss mass of R clavicle. States it has been present since 2018, began as a pimple and has been continuously enlarging since then. She has not noticed drainage. Sometimes tender. No skin changes. No constitutional symptoms. Rigo Stout MD [address], [place] [address], [place], [address], [employer] [facility] 09/09/2022 14:20:19 09/30/2022 text/html Patient presents for excision of mass of R clavicle. Rigo Stout MD [address], [place] [address], [place], [address], [employer] 10/01/2022 11:46:19 10/07/2022 text/html f/u after excisi on of mass of r clavicle, epidermal inclusion cyst. doing well. no drainage. no fevers. Rigo Stout MD [address], [place] [address], [place], [address], [employer] 10/07/2022 14:47:15 OBGyn Episode No OBEpisode recorded.
--- OUTSIDE RECORDS SUMMARY | 2024-10-23 10:23 | XMS_ITS | Data Portability ---
Author Organization [facility] [employer] , [facility]ne Address [address] [place] [address] Assessment No assessment recorded. Plan of Treatment Reminders Order Date Submit Date Provider Last Modified By Organization Details Last Modified Time Details Appointments OB SONOGRA M 30 2024 09:45A M Ultrasound Roxie 4 Not available Not available Not available OB RETURN EST 2024 10:15A M LELA MAKI, MEDIA PRODUCTION OPERATOR Not available Not available Not available Lab hemoglo bin A1c, QN, blood 2024 025 [employer] Jamie, [address] [place] [address], [address], 08/03/2024 15:21:48 abo group + rh type, blood 2024 025 [facility], [address] [facility], [place], [address], 08/03/2024 20:49:30 CBC w/ auto diff 2024 025 [employer], [address] [place], [address], 08/03/2024 12:32:15 CT + NG DNA, PCR, unspeci fied specime n 2024 025 [employer], [address] [place], [address], 08/03/2024 14:45:13 drug of abuse panel, urine 2024 025 [facility], [address] [place], [address], 08/03/2024 15:47:19 obstetr ic screen + HIV, serum or blood 2024 025 [facility], [address] [place], [address], 08/03/2024 12:26:15 measles igg Ab, serum 2024 025 [facility], [address] [place], [address], 08/03/2024 20:49:29 culture , urine 2024 025 [facility], [address] [place], [address], 08/03/2024 20:49:30 varicel la-zost er igg Ab screen, serum 2024 025 [facility], [address] [place], [address], 08/03/2024 20:49:28 antibod y screen, serum or plasma 2024 025 [facility], [address] [place], [address], 08/03/2024 20:49:29 pregnan cy test, urine 2024 025 [facility], [address] [place], [address], 07/25/2024 13:48:12 unliste d lab - sureswa b(R) advance d vaginit is plus, tma 2023 024 [facility], [address] [place], [address], 10/30/2023 20:51:51 Referral gastroe nterolo gist referra l 2023 024 [facility] 3 Rachel Brown MD, [address], [place], [address], 11/03/2023 14:52:32 Procedures None recorde d. Surgeries None recorde d. Imaging US, obstetr ic, 2nd trimest er 2024 025 [facility] Not available 10/18/2024 16:13:19 US, obstetr ic, transva ginal 2024 025 [email or web address] Not available 10/17/2024 13:19:23 US, transva ginal 2024 025 [facility] Not available 07/25/2024 16:56:06 Medication Orders Prenata l Vitamin 27 mg iron-0. 8 mg tablet 2024 025 [facility]99313, [address] [place] [address], [id number], 10/17/2024 13:19:29 lamotri gine 25 mg tablet 2024 025 [facility] #49739, [address] [place] [address], [phone], 08/02/2024 11:12:01 fluoxet ine 20 mg capsule 2024 025 [facility] #96269, [address] [place] [address], [id number], 09/23/2024 14:06:53 Prenata l Gummies 400 mcg-35 mg-25 mg-5 mg chewabl e tablet 2023 024 [facility]28154, [address] [place] [address], [id number], 09/23/2024 14:06:47 Patient TargetsNo targets recorded. Patient InstructionsNo instructions recorded. Reason for Referral Leather Lacer Referral for Family history of malignant neoplasm of pancreas Referring Physician: Zoila Buchanan, MANAGER SOURCING, Encounter Date: 10/29/2023 Results Created Date Observation Date Name Description Value Unit Range Abnormal Flag Note LastModifiedBy Organization Detail LastModifiedTime 10/29/19 24 10/30/2023 SURES WAB(R ) ADVAN JARROD VAGIN ITIS PLUS, TMA sureswab(R) adv bacterial vaginosis (bv), tma NEGATI VE negati ve normal Not Available [address], [address], 10/30/2023 20:51:51 10/29/19 24 10/30/2023 SURES WAB(R ) ADVAN JARROD VAGIN ITIS PLUS, TMA selina species NOT DETECT ED not detect ed normal Not Available [address], [address], 10/30/2023 20:51:51 10/29/19 24 10/30/2023 SURES WAB(R ) ADVAN JARROD VAGIN ITIS PLUS, TMA selina glabrata NOT DETECT ED not detect ed normal Kaia da speci es C. albic ans, C. tropi calis , C. parap angelito is, and/o r C. dubli niens is can be detec mary, but not diffe renti ated, in the Kaia da spp. resul t. Not Available [facility] [address], [address], 10/30/2023 20:51:51 10/29/19 24 10/30/2023 SURES WAB(R ) ADVAN JARROD VAGIN ITIS PLUS, TMA trichomonas vaginalis (TV), tma NOT DETECT ED not detect ed normal Not Available [address], [address], 10/30/2023 20:51:51 10/29/19 24 10/30/2023 SURES WAB(R ) ADVAN JARROD VAGIN ITIS PLUS, TMA chlamydia trachomatis RNA, tma, urogenital NOT DETECT ED not detect ed normal Not Available [facility] [address] [place], [address], 10/30/2023 20:51:51 10/29/19 24 10/30/2023 SURES WAB(R ) ADVAN JARROD VAGIN ITIS PLUS, TMA neisseria gonorrhoeae RNA, tma, urogenital NOT DETECT ED not detect ed normal For addit ional infor nahum malcolm refer to https ://ed ucati on.qu estWir3s. Studio Ousia/f aq/FA Q154 (This link is being provi ded for deepti solis/ valentina pina only. ) Not Available [facility] [address] [place], [address], 10/30/2023 20:51:51 07/26/19 25 07/25/2024 pregn darryn test, urine HCG positi ve Not Available [facility] [address] [place], [address], 07/20/2024 11:46:17 08/03/19 25 08/03/2024 OB PANEL - STD BLOOD WORK hep BS Ag Non-Re active non-re active normal Not Available [facility] [address], [address], 08/03/2024 12:26:15 08/03/19 25 08/03/2024 OB PANEL - STD BLOOD WORK hep C Ab Non-Re active non-re active normal Not Available [facility] [address] [place], [address], 08/03/2024 12:26:15 08/03/19 25 08/03/2024 OB PANEL - STD BLOOD WORK HIV 1/2 Ag/Ab Non-Re active non-re active normal Not Available [facility] Jamie [address] [place], [address], 08/03/2024 12:26:15 08/03/19 25 08/03/2024 OB PANEL - STD BLOOD WORK syphilis Ab Non-Re active non-re active normal Not Available [facility] [address] [place] [address], [address], 08/03/2024 12:26:15 08/03/19 25 08/03/2024 OB PANEL - STD BLOOD WORK rubella Ab IgG 59.3 IU/mL normal INTER PRETI VE INFOR MATIO N: Rubel la Antib tran, IgG. < 5.0 IU/mL ..... ..... . Not consi stent with immun ity 5.0 - 9.9 IU/mL ..... . Equiv ocal: Indet ermin ate-R epeat testi ng in 10-14 days may be helpf ul. > or = 10.0 IU/mL ... Consi stent with immun ity The prese nce of Rubel la IgG antib tran sugge st respo nse to immun izati on or prior /curr ent expos ure to the Rubel la virus . Not Available [address], [address], 08/03/2024 12:26:15 08/03/19 25 08/03/2024 CBC (INCL UDES DIFF/ PLT) WBC 10.3 thous and/u L 4.0 - 9.8 high Not Available [address], [address], 08/03/2024 12:32:15 08/03/1908/03/2024 CBC (INCL UDES DIFF/ PLT) RBC 3.9 nalini on/uL 3.9 - 4.9 normal Not Available [facility] [address] [place] [address], [address], 08/03/2024 12:32:15 08/03/19 25 08/03/2024 CBC (INCL UDES DIFF/ PLT) hemoglobin 13.3 g/dL 11.8 - 14.8 normal Not Available [facility] [address] [place] [address], [address], 08/03/2024 12:32:15 08/03/19 25 08/03/2024 CBC (INCL UDES DIFF/ PLT) hematocrit 38.4 % 35.5 - 44.0 normal Not Available [address], [address], 08/03/2024 12:32:15 08/03/19 25 08/03/2024 CBC (INCL UDES DIFF/ PLT) MCV 98.0 fL 82.0 - 99.0 normal Not Available [address], [address], 08/03/2024 12:32:15 08/03/19 25 08/03/2024 CBC (INCL UDES DIFF/ PLT) MCH 33.9 pg 27.2 - 32.6 high Not Available [address], [address], 08/03/2024 12:32:15 08/03/19 25 08/03/2024 CBC (INCL UDES DIFF/ PLT) MCHC 34.6 g/dL 31.5 - 35.5 normal Not Available [address], [address], 08/03/2024 12:32:15 08/03/19 25 08/03/2024 CBC (INCL UDES DIFF/ PLT) RDW-CV 12.0 % 11.5 - 14.5 normal Not Available [address], [address], 08/03/2024 12:32:15 08/03/1908/03/2024 CBC (INCL UDES DIFF/ PLT) platelet 329 thous and/u L 140 - 350 normal Not Available [address], [address], 08/03/2024 12:32:15 08/03/1908/03/2024 CBC (INCL UDES DIFF/ PLT) MPV 9.5 fL 9.3 - 12.4 normal Not Available [address], [address], 08/03/2024 12:32:15 08/03/19 25 08/03/2024 CBC (INCL UDES DIFF/ PLT) absolute neutrophil 7.02 thous and/u L 1.90 - 7.00 high Not Available [address], [address], 08/03/2024 12:32:15 08/03/19 25 08/03/2024 CBC (INCL UDES DIFF/ PLT) absolute lymphocyte 2.36 thous and/u L 0.70 - 4.50 normal Not Available [address], [address], 08/03/2024 12:32:15 08/03/19 25 08/03/2024 CBC (INCL UDES DIFF/ PLT) absolute monocyte 0.52 thous and/u L 0.10 - 1.30 normal Not Available [address], [address], 08/03/2024 12:32:15 08/03/19 25 08/03/2024 CBC (INCL UDES DIFF/ PLT) absolute eosinophil 0.19 thous and/u L <0.70 normal Not Available [address], [address], 08/03/2024 12:32:15 08/03/19 25 08/03/2024 CBC (INCL UDES DIFF/ PLT) absolute basophil 0.05 thous and/u L <0.20 normal Not Available [address], [address], 08/03/2024 12:32:15 08/03/19 25 08/03/2024 CBC (INCL UDES DIFF/ PLT) absolute immature granulocyte 0.13 thous and/u L <0.03 high Not Available [address], [address], 08/03/2024 12:32:15 08/03/19 25 08/03/2024 CT/NG chlamydia trachomatis CT neg negati ve normal This repor t is inten ded for us in clini lawrence monit oring and manag ement of patie nts. It is not inten ded for use in medic al-le gal appli catio n. Not Available [facility] [address] [place], [address], 08/03/2024 14:45:13 08/03/19 25 08/03/2024 CT/NG neisseria gonorrhoeae GC neg negati ve normal This repor t is inten ded for us in clini lawrence monit oring and manag ement of patie nts. It is not inten ded for use in medic al-le gal appli catio n. Not Available [facility] [address] [place], [address], 08/03/2024 14:45:13 08/03/19 25 08/03/2024 HEMOG LOBIN A1C hemoglobin A1C 4.8 % <5.7 normal The refer ence range for HbA1c is indic ated in the table below . Sugge sted Diagn osis =6.5% Consi stent with diabe nasim 5.7 6.4% Consi stent with incre ased risk for diabe nasim (pred iabet ic) <5.7% Consi stent with the absen ce of diabe nasim Not Available [facility] [address] [place], [address], 08/03/2024 15:21:48 08/03/19 25 08/03/2024 DRUG ABUSE PANEL 7 W/CON FIRM amphetamines Negati ve negati ve normal Not Available [facility] [address] [place], [address], 08/03/2024 15:47:19 08/03/19 25 08/03/2024 DRUG ABUSE PANEL 7 W/CON FIRM barbiturates Negati ve negati ve normal Not Available [facility] [address] [place], [address], 08/03/2024 15:47:19 08/03/19 25 08/03/2024 DRUG ABUSE PANEL 7 W/CON FIRM benzodiazepi angelita Negati ve negati ve normal Not Available [facility] [address] [place], [address], 08/03/2024 15:47:19 08/03/19 25 08/03/2024 DRUG ABUSE PANEL 7 W/CON FIRM cocaine metabolites Negati ve negati ve normal Not Available [facility] [address] [place], [address], 08/03/2024 15:47:19 08/03/19 25 08/03/2024 DRUG ABUSE PANEL 7 W/CON FIRM cannabinoids Presum ptive Positi ve negati ve abnormal Not Available [facility] [address] [place], [address], 08/03/2024 15:47:19 08/03/19 25 08/03/2024 DRUG ABUSE PANEL 7 W/CON FIRM methadone Negati ve negati ve normal Not Available [facility] [address] [place], [address], 08/03/2024 15:47:19 08/03/19 25 08/03/2024 DRUG ABUSE PANEL 7 W/CON FIRM opiates Negati ve negati ve normal Not Available [facility] [address] [place], [address], 08/03/2024 15:47:19 08/03/19 25 08/03/2024 DRUG ABUSE PANEL 7 W/CON FIRM creatinine, urine 168 mg/dL 20 - 275 normal Not Available [facility] [address] [place], [address], 08/03/2024 15:47:19 08/03/19 25 08/03/2024 VARIC MIKE ZOSTE R VIRUS ANTIB TRAN (IGG) varicella zoster virus antibody (IgG) <1.00 S/co low Signa l to Cut-o ff S/CO Inter preta tion ----- ---- ----- ----- ----- ----- -- <1.00 Negat henrique - Antib tran not detec mary > or = 1.00 Posit henrique - Antib tran detec mary A posit henrique resul t indic ates that the patie nt has antib tran to VZV but does not diffe renti ate betwe en an activ e or past infec tion. The clini lawrence diagn osis must be inter prete d in conju nctio n with the clini lawrence signs and sympt oms of the patie nt. This assay relia rossy measu res immun ity due to previ ous infec tion but may not be sensi tive enoug h to detec t antib odies induc ed by vacci natio n. Thus, a negat henrique resul t in a vacci nated indiv idual does not neces saril y indic ate susce ptibi lity to VZV infec tion. A more sensi tive test for vacci natio n-ind uced immun ity is Varic mike Zoste r Virus Antib tran Immun ity Scree n, ACIF. Not Available [facility] [address], [address], 08/03/2024 20:49:28 08/03/19 25 08/03/2024 MEASL ES AB (IGG) , IMMUN E STATU S measles Ab (IgG), immune status 67.30 AU/mL normal AU/mL Inter preta tion ----- ----- ----- ---- <13.5 0 Not consi stent with immun ity 13.50 -16.4 9 Equiv ocal >16.4 9 Consi stent with immun ity The prese nce of measl es IgG sugge sts immun izati on or past or curre nt infec tion with measl es virus . For addit ional hattier nahum malcolm refer to http: //nicky kayeQue stDia gnost ics.c om/fa q/FAQ 162 (This link is being provi ded for infor jen cornejo/ educa dany l purpo ses only. ) Not Available [facility] [address] [place], [address], 08/03/2024 20:49:29 08/03/19 25 08/03/2024 ANTIB TRAN SCREE N, RBC W/REF L ID, TITER AND AG antibody screen, RBC w/refl id, titer and Ag NO ANTIBO DIES DETECT ED normal Refer ence range No antib odies detec mary This assay is a scree nazia test for the detec tion of red blood cell antib odies . The test is not to be used for pretr ansfu effie scree nazia or for the medic al manag ement of an alloi mmuni zed pregn darryn. Not Available [place] [address] [place], [address], 08/03/2024 20:49:29 08/03/19 25 08/03/2024 ABO GROUP AND RH TYPE ABO group O Not Available [facility] [address] [place], [address], 08/03/2024 20:49:30 08/03/19 25 08/03/2024 ABO GROUP AND RH TYPE Rh type RH(D) POSITI VE For addit ional infor nahum malcolm e refer to http: //[facility] estiven Diaz stDia gnost ics.c om/fa q/FAQ 111 (This link is being provi ded for infor jen cornejo/ educantonietta subramanian purpo ses only. ) Not Available [facility] [place] [address] [place], [address], 08/03/2024 20:49:30 08/03/19 25 08/03/2024 CULTU RE, URINE , ROUTI NE culture, urine, routine SEE NOTE CULTU RE, URINE , ROUTI NE Micro Numbe r: [id number] Test Statu s: Final Speci men Sourc e: Urine Speci men Quali ty: Adequ ate Resul t: No Growt h Not Available [facility] [place] [address] [address] [place], [address], 08/03/2024 20:49:30 08/20/19 25 08/19/2024 CHROM OSOME S 13, 18, 21 + SEX CHROM OSOME CARRIE SIS chromosomes 13, 18, 21 + sex chromosome analysis Negati ve normal See PDF for compl ete resul ts. Overa ll Resul t: Negat henrique Negat henrique for all order ed condi tions Clini lawrence Notes : * The resid ual risks provi ded repre sent the remai nazia [facility] e that the pregn darryn is affec mary with the indic ated chrom osome aneup loidy in view of a negat henrique resul t. * This is a scree nazia test; there fore, false posit henrique and false negat henrique resul ts can occur . No irrev ersib le decis ion shoul d be made based on these findi ngs alone . Clini lawrence corre latio n with ultra sound findi ngs and histo ry is indic ated. If defin itive diagn osis is nicky ed, chori onic villu s sampl ing or amnio cente sis is neces kandy. fract ion: 23.0% - fract ion is one compo nent of the algor ithm used and is combi ilda with other quali ty metri cs to deter mine the aneup loidy scree nazia resul t. Not Available [facility] [address] [place] [address], [address], 08/25/2024 17:45:34 08/21/19 25 08/20/2024 KARLA MENTA L PANEL (CF + SMA) fundamental panel (CF + sma) Negati ve normal See PDF for compl ete resul ts. Overa ll Resul t: Negat henrique No disea se-ca using mutat ions detec mary. Not Available [facility] [address] [place] [address], [address], 08/31/2024 13:45:14 08/21/19 25 08/20/2024 KARLA MENTA L PLUS PANEL , KARLA MENTA L PANEL fundamental plus panel, fundamental panel Negati ve normal See PDF for compl ete resul ts. Overa ll Resul t: Negat henrique No disea se-ca using mutat ions detec mary. Not Available [facility] [address], [place], [address], 09/11/2024 14:15:41 07/26/1907/25/2024 US, trans vagin al No observ ation record ed. [email or web address] [address], [place], [address], 07/25/2024 16:56:06 10/19/19 25 10/17/2024 US, obste tric, 2nd trime ster No observ ation record ed. [email or web address] [address], [place], [address], 10/18/2024 16:13:19 Result Notes None recorded. Problems Name Problem SNOMED Code Status Onset Date Resolution Date Notes Provider Name and Address Organization Details Recorded Time Normal pregnanc y in [facility] [id number] 4105 Completed 201510/29/2023 Encounte r for supervis ion of other normal pregnanc y, third trimeste r; Progress : Stable Added By: Karly Paula Add to Current Problems : YES ProblemS tatus: Current Otto Mak null, [facility] 4 13:09:03 Antenata l screenin g Completed 201510/29/2023 Encounte r for antenata l screenin g of mother; Progress : Stable Added By: Karly Paula Add to Current Problems : YES ProblemS tatus: Current Otto Mak null, [facility] 4 13:08:56 Normal pregnanc y 88839227 Completed 201510/29/2023 Medical visit for normal pregnanc y; Location : None Progress : Stable Added By: Karly Paula Add to Current Problems : YES ProblemS tatus: Current Otto Mak null, [facility] 4 13:09:01 Pregnanc y 22801492 Active 2024 Yazmin Smith null, [facility] 5 16:06:17 Mixed bipolar affectiv e disorder , mild 922734485 Active 2024 Restarte d lamotrag ine based on starting regime on epocrate s. 25mg every day x 2 weeks and then increase to 50mg every day. BEE ESPINAL [address] [place], [address] , [facility] IV 5 12:31:54 Mixed anxiety and depressi ve disorder 826345064 Active 2024 Rx for fluoxeti ne 20gm BEE ESPINAL [address] [place] [address], [address] , [facility] [email or web address] [facility] IV 5 12:31:52 Past pregnanc y history of section 245264094 Active 2024 G1 at [place] for intolera nce after dilating 8cm. G2 delivery at [facility] due to living close-no complica tions BEE ESPINAL [facility] [place], [address] , [facility] [email or web address] [facility] IV 5 12:32:27 Past pregnanc y history of delivery procedur e 151928496 Active 2024 BEE ESPINAL [address] [place] [address], [address] , [facility] [email or web address] IV 5 12:32:07 Past pregnanc y history of section 985189067 Active 2024 G1 at [place] for intolera nce after dilating 8cm. G2 delivery at [facility] due to living close-no complica tions BEE ESPINAL [address] [place], [address] , [facility] [email or web address] [facility] IV 5 12:32:27 Mixed anxiety and depressi ve disorder 461820877 Active 2024 Rx for fluoxeti ne 20gm JOHN STARKEY, BEE [address] [place], [address] , [facility] [email or web address] [facility] IV 5 12:31:52 Mixed bipolar affectiv e disorder , mild 926699670 Active 2024 Restarte d lamotrag ine based on starting regime on epocrate s. 25mg every day x 2 weeks and then increase to 50mg every day. JOHN STARKEY, [employer] [address] [facility], [place], [address] , [facility] [email or web address] [facility] IV 5 12:31:54 Varicell a non-immu ne 661429171 Active 2024 JOHN STARKEY, CPS TE[employer] LEAD [address] [facility], [place], [address] , [facility] IV 5 09:06:49 Maternal care for diminish ed movement s Completed 201504/26/2016 Decrease d movement s, antepart um conditio n or complica tion; Progress : Stable Added By: Chery Basilio Add to Current Problems : NO ProblemS tatus: Resolve Not Available [facility] 2 07:52:29 Gestatio n period, 37 weeks 61340517 Completed 201510/29/2023 37 weeks gestatio n of pregnanc y; Progress : Stable Added By: Karly Paula Add to Current Problems : YES ProblemS tatus: Current Otto winter, [employer] [facility] IV 4 13:08:59 Problem Notes None recorded. Procedures Surgical History Date Name Laterality Status Provider Name and Address Organization Details Recorded Time 09/25/19 Date of Last Pap Smear completed Yoanna Perez [place] [email or web address] [facility] IV 09/24/2022 09:39:18 Gall bladder completed [facility] IV 09/01/2022 10:19:00 D & C [facility] [employer] [facility] IV 09/01/2022 10:19:00 C Section completed [email or web address] IV 09/01/2022 10:19:00 Imaging Results None recorded. Procedure Notes None recorded. Medical Equipment None Reported. Allergies Allergen ID Allergen Name Allergen Category Reaction Reaction Severity Criticality Documentation Date Start Date Code Code System Note Provider Name and Address Organization Details Recorded Time 766812 cefazolin sodium medicatio n Not available Not available Not available 02/08/20212015 1 RxNorm Sever ity: Moder ate; Not Available [facility] 01:09:29 832390 cefazolin medicatio n swelling Not available Not available 07/25/20242017 2180 RxNorm Kamryn Bell null, [email or web address] IV 5 10:47:38 686499 tramadol medicatio n vomiting Not available Not available 07/25/20242019 22646 RxNorm Kamryn Bell null, [employer] [facility] IV 5 10:47:40 154190 Prozac medicatio n other moderate Not available 08/03/2024 23376 RxNorm Incre ase in depre ssive sympt oms and made her feel paran oid JOHN STARKEY, CPS TEAM LE[employer] [address] [place], [address], [facility] IV 5 10:22:30 799724 cefazolin sodium medicatio n facial swelling moderate Not available 10/20/2024 1 RxNorm LELA MAKI NP [address] [place], [address], [facility] IV 5 16:24:34 Medications Name Sig Start Date Stop Date Status Note LastModified by Organization Details LastModified Time alprazola m 1 mg tablet TAKE 1 TABLET BY MOUTH ONCE DAILY NEEDED FOR ANXIETY 07/25 completed Not Available Not Available Not Available lamotrigi ne 25 mg tablet 25 mg every day times 2 weeks. 2024 active Not Available Not Available Not Avai lable Macrobid 100 mg capsule 1 capsule BID x 7 days 05/19 completed Macrobid 100mg Capsules RxNorm: 732263 Allow Substitu tion: True Refill Denied: No Not Available Not Available Not Available Vitamin tablet Take 1 tablet(s ) by mouth daily 12/06 completed Multivit hill Tablet Allow Substitu tion: True Refill Denied: No Refill Note: Auto Aged Refill DateOccu rred: 11/12/19 16 For Problem: Antenata l screenin g; unspecif ied Not Available Not Available Not Available fluoxetin e 20 mg capsule Take 1 capsule every day by oral route. 09/23 completed Not Available Not Available Not Available Vitamin 27 mg iron-0.8 mg tablet Take 1 tablet every day by oral route for 90 days. 2024 active Not Available Not Available Not Avai lable Lexapro 20 mg tablet Take 1 tablet every day by oral route. 08/02 completed Not Available Not Available Not Available lamotrigi ne 25 mg daily 10/17 completed Not Available Not Available Not Available alprazola m 0.5 mg Taking it daily. 07/25 completed Not Available Not Available Not Available Macrobid 1 capsule BID x 7 days 03/20 completed Macrobid 100mg Capsules RxNorm: 380150 Allow Substitu tion: True Refill Denied: No Edited by: Trisha Barron ) on 03/20/20 16 Stopped by: Trisha Barron ) on 03/20/20 16 Not Available Not Available Not Available Lexapro 20 tab qday 10/28 completed Not Available Not Available Not Available cholecalc iferol (vitamin D3) 1,250 mcg (50,000 unit) capsule Take 1 capsule every week by oral route. 10/17 completed Not Available Not Available Not Available 28 mg iron-800 mcg tablet Take 1 tablet by oral route. 10/17 completed Not Available Not Available Not Available Gummies 400 mcg-35 mg-25 mg-5 mg chewable tablet Take 1 tablet every day by oral route at bedtime. 09/23 completed Not Available Not Available Not Available Vitals Date Recorded Body height Body mass index (BMI) Body weight Systolic And Diastolic Provider Name and Address Organization Details Last Updated DateTime 07/25/2024 157.48 cm 25.1 kg/m2 05212.15 g 122/78 mm[Hg] [facility] 07/25/2024 11:29:23 Date Recorded Body height Body mass index (BMI) Body weight Systolic And Diastolic Provider Name and Address Organization Details Last Updated DateTime 08/02/2024 157.48 cm 25.1 kg/m2 98786.87 g 118/72 mm[Hg] Shonda Hampton [facility] 08/02/2024 10:26:31 Date Recorded Body height Body mass index (BMI) Body weight Systolic And Diastolic Provider Name and Address Organization Details Last Updated DateTime 09/23/2024 157.48 cm 25.2 kg/m2 65603.31 g 108/60 mm[Hg] Coty Delong [facility] 09/23/2024 14:08:35 Date Recorded Body height Body weight Systolic And Diastolic Provider Name and Address Organization Details Last Updated DateTime 10/17/2024 157.48 cm 85116.7470 6 g 112/70 mm[Hg] Mindy Lovell [facility] 10/17/2024 12:40:27 Date Recorded Body height Body mass index (BMI) Body weight Systolic And Diastolic Provider Name and Address Organization Details Last Updated DateTime 10/29/2023 157.48 cm 26.4 kg/m2 25010.74 g 112/64 mm[Hg] Otto Mak [facility] 10/29/2023 13:08:33 Social History Question Answer Notes LastModified by Organizat ion Details LastModified Time Tobacco Smoking Status Never Smoker Sylwia winter, [facility] 09/01/2022 10:18:57 If You Are , What Was Your Level Of Alcohol Consumption Prior To ? Occasional [email or web address] Information not available 08/02/2024 Are You Blind Or Do You Have Difficulty Seeing? No Information not available 09/01/2022 Are You Deaf Or Do You Have Serious Difficulty Hearing? No Information not available 09/01/2022 What Type Of Diet Are You Following? REGULAR Information not available 09/01/2022 Which Illicit Or Recreational Drugs Have You Used? MJ Use Information not available 09/01/2022 How Many Children Do You Have? 2 Information not available 09/01/2022 What Is Your Relationship Status? Single Information not available 09/01/2022 Are You Sexually Active? Yes Information not available 09/01/2022 Have You Used IV Drugs? No Information not available 09/01/2022 Sex: Unknown Functional Status Question Answer Note LastModified by Organizat ion Details LastModified Time Do you use any illicit or recreational drugs? Yes [email or web address] Information not available 08/29/2022 Do you or have you ever used any other forms of tobacco or nicotine? No [email or web address] Information not available 10/17/2024 What is your level of alcohol consumption? None Information not available 09/01/2022 Are you currently employed? No [email or web address] Information not available 09/23/2024 Do you or have you ever used e-cigarettes or vape? Former user of electronic cigarettes Information not available 09/01/2022 What is your exercise level? None Information not available 09/01/2022 Mental Status None recorded. Family History Relationship Description Onset Age of this Age Resolved Age Notes LastModified by Organization Details LastModified Time Paternal Grandmother Malignant tumor of breast 50 87 [email or web address] Not available 2022 10:54:12 Mother Depressive disorder [email or web address] Not available 09/01/2022 10:18:45 Unspecified Relation Diabetes mellitus [email or web address] z Not available 09/01/2022 10:18:45 Maternal Grandmother Malignant tumor of pancreas [email or web address] Not available 09/23 13:45:03 Medical History Condition Response Other Cancer N High Blood Pressure N Colon Cancer N Cytomegalovirus N Hyperthyroidism N Blood Transfusion N MRSA N Herpes (HSV) N Breast Cancer N Lung Cancer N Hypothyroidism N Depression Y Incontinence N Panic Attacks Y Neurological Disorder N Deep Vein Thrombosis N Anxiety Disorder Y Autoimmune disease N Arthritis N Shingles N Tuberculosis/Positive PPD N Infertility N Polycystic Ovarian Syndrome N Cervical Cancer N Chlamydia Y Hematuria N Stroke N Varicosities N Seasonal allergies N Crohn's Disease N Alzheimer's/Dementia N COPD/Emphysema N Endometriosis N HPV/Genital Warts N IBS (Irritable Bowel Syndrome) N History of Abnormal Pap N High Cholesterol N Liver Disease N Kidney Infection N Fibromyalgia N Ulcer N Kidney Disease N HIV N Gallbladder disease N Von Willebrand disease N Sickle Cell Disease/Trait N ADD/ADHD N Eating Disorder N Diabetes Mellitus (non-insulin dependent ) N Anemia N Ovarian Problems N Multiple Sclerosis N Gonorrhea N Frequent Urinary Tract infections Y Osteopenia N Headaches/migraines N GERD (reflux) N Ovarian Cancer N Diabetes (insulin dependent) N Seizures/Epilepsy N Breast Problems N Fibroids N Asthma N Heart Attack N Endometrial Cancer N Lupus N Rubella N Blood Clotting Disorder N Bipolar Disorder Y Diabetes Mellitus (during ) N Ulcerative Colitis N Hepatitis N Heart Disease N Pulmonary Embolism N RPR N Chicken Pox N Osteoporosis N Gynecological History Statement/Question Response Date of Last Colonoscopy Date of last HPV Frequency of Cycle (Q days) 28 Date of LMP 05/30/2024 Most Recent Bone Density Date of Last Pap Smear 09/24/2022 Duration of Flow (days) 7 Most Recent Mammogram Current Control Method Age at Menarche 9 Obstetrics History GPAL:G 8 P 2 0 5 2 Type Value Multiple Births 0 Full Term 2 Induced 3 Spontaneous 2 Premature 0 Living 2 Ectopics 0 Total 8 Past Encounters Encounter ID Performer Location Encounter Start Date Encounter Closed Date Diagnosis/Indication Diagnosis SNOMED-CT Code Diagnosis ICD10 Code Diagnosis Note [id number] [facility] [address] [place] [address] 09/01/2022 09:50:55 09/01/2022 16:36:46 Gynecologic examination 84648994 Z01.419 Pt educated on ACOG and ASCCP guidelines for breast, ovarian, and cervical cancer screenings . Exam WNL. Plan for F/U PRN or for next WWE. Screening for malignant neoplasm of cervix 139456820 Z12.4 ASCCP guidelines reviewed with pt. Pap collected and sent. Further POC pending lab result review. Pt states understand ing of POC. Depression screening 171 599559 Z13.31 PHQ9: 9. Pt educated on abnormal scoring. Pt has PCP provider managing her depression and anxiety and has been trying different medication s to help with sx. Pt is happy with tx at this time. Pt encouraged to F/U with PCP for further management . Venereal d isease screening 010740613 Z11.3 Pt educated on importance of condom use for protection against STD's. Samples collected and sent. Further POC pending lab result review. Pt states understand ing of POC. [facility] 585288195 Z30.09 Pt educated on all available hormonal and non-hormon al contracept henrique methods. Pt directed to bedsider.o rg and given handouts for review of options. Pt to F/U with HCP in regard to contracept henrique choice. Pt states understand ing of POC. Family his tory of breast cancer 944190736 Z80.3 Pt educated on optional early mammogram due to family history of breast cancer and MyRisk testing. Pt states understand ing of POC and will consider. Pt to notify HCP if would like to proceed with imaging or hereditary testing. [id number] [facility] [address] [place] [address] 09/24/2022 09:25:03 09/24/2022 17:21:26 Screening for malignant neoplasm of cervix 602534475 Z12.4 ASCCP guidelines reviewed with pt. Pap collected and sent. Further POC pending lab result review. Pt states understand ing of POC. Nausea and vomiting 1693 2000 R11.2 UPT in office is negative. Pt encouraged to review labs drawn by PCP and eval for CMP, Amylase, and Lipase. If not drawn would recommend. Constipation 60057690 K5 9.00 Pt encouraged to push p.o. water intake, taking probiotics , and discussed increasing fiber in diet. Pt offered GI referral if no relief of sx. Pt states understand ing of POC. Abdominal pain 38896441 R10.9 UPT negative. STD testing 08/2022 WNL. Repeat pap collected. Unsat in 08/2022. Pt encouraged to schedule TVUS. If imaging WNL, plan F/U with PCP/GI provider for further management of cyclic abd pain and n/v. Pt states understand ing of POC. [id number] Sri holly CNM [facility] [address] [place] [address] 10/17/2022 15:50:08 10/18/2022 12:43:49 Abdominal pain 68888945 R10.9 Reviewed US small cyst, will FU in 3 months for cyst eval Pain in pelvis 09935100 R10.2 [id number] [facility] [address] [place] [address] 10/29/2023 12:47:34 10/29/2023 14:24:37 Reproductive care management 471326924 Z31.69 Pt educated on timing intercours e, taking PNV daily, and discussed use of OPK kits to help narrow down window of ovulation. Pt states she has been sexually active with current partner for a year, but has not been tracking cycles or timing intercours e routinely. Pt encouraged to consider TVUS d/t c/o diffuse abd bloating and h/o chlamydia. Vaginal cx collected and sent. If all testing WNL, would recommend JUVENTINO referral after 1 year of active attempting conception or PRN F/U at [facility] with + HPT. Pt states understand ing of POC. Over 30 minutes spent in patient care and at least 50% of that time was in face to face counseling . Additional diagnosis detail: Procreativ e management counseling Pain in pelvis 39341399 R10.2 Pt educated on possible causes of sx, and discussed recommenda tion for work up. Vaginal cx collected and sent. Bimanual exam WNL. Last Pap: 09/2022 NILM. Further POC pending lab result review. Would consider TVUS if sx persistent . PA sent. Pt educated on when to notify HCP/go to ER. Pt states understand ing of POC. Additional diagnosis detail: Pelvic pain Family his tory of malignant neoplasm of pancreas 147106120 Z80.0 Pt educated on considerat ion for GI referral d/t family h/o pancreatic cancer and c/o diffuse abdominal bloating. CRATE BUILDER work up in process. Pt amenable to POC, and would like to proceed with referral. Referral order sent. Further POC based on GI recommenda tion. Pt states understand ing of POC. Additional diagnosis detail: Family history of pancreatic cancer [id number] [facility] [address] [place] [address] 07/25/2024 10:19:34 07/25/2024 16:33:23 Amenorrhea 06144920 N91.0 N91.1 Z32.00 UPT in office was +. TVUS: 8 2/7 wk IUP. EDC 03/06/25; based on LMP. [id number] [facility] [address] [place] [address] 08/02/2024 10:17:09 08/02/2024 13:40:22 Gestation period, 9 weeks 640656 Z3A.09 Normal 8586964 2 Z34.91 Pt comes in today for a New/First OB visit.Gest ation: 9w 1dEDD: 03/06/2025 -- PMH: Anxiety, Depression , Bipolar-ma julianna- was on lexapro, lamotrigin e, and alprazolam . Has not been on alprazolam for a little while due to not going back to specialist (she did not like him). Stopped her Lexapro and lamotrigin e when she found out she was and has started to feel very overwhelme d with situations .--FOB involved, good support-- Medication s: Taking daily PNV, not taking any other medication s-- Previous OB History: G1- Primary C/S at [place] for intoleranc e to labor after dilating to 8cm. G2- at [facility] in [place] because she lived in the area.-- History of Genital HSV: Denies-- Genetic Questions in OB Episode Done-- Accepts NIPT- will have drawn at next visit.-- Last PAP: Last pap 09/24/2022 NILM. Recommend updating, patient declines and requesting to wait until PP. --BMI at Confirmati on: 25.1 POC-- NOB labs done today-- Accepts NIPT-order s are in and will draw at next visit as patient is not 10 weeks yet.-- PAP: Deferred to PP-- Pre-Pregna ncy BMI: 25.1-- RTC 4 weeks Guide: Given and reviewed. Toxoplasmo sis precaution s reviewed. Reviewed office visit schedule during . Reviewed Quickening and normal FHTs. 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 Discussed black box warning with SSRIs. Pt educated on when to notify HCP/go to ER. 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 -No longer sees provider managing her mental health due to not liking that provider.- Discussed with Dr. Smith, will get patient back on her mental health medication s due to risk vs benefits and safe in . -Education provided on risk vs benefits of mental fe medicaton in . Pt voice understand ing.-Due to being off medication for more than 1 month will start patient on starter regime recommende d by epocrates. Will start 25mg every day for 2 weeks and then will increase in 50mg if needed and tolerated. -Reviewed when to call HCP/go to ER. Pt voices understand ing.-Will RTC in 2 weeks for evaluation . Depression screening 171 891807 Z13.31 See intake form [id number] Sri holly, LEEROY [facility] [address] [place] [address] 09/23/2024 13:44:55 09/23/2024 14:44:35 High risk 60455658 O09.892 Gestation period, 16 weeks 90207958 Z3A.16 [id number] LELA MAKI NP [facility] [address] [place] [address] 10/17/2024 11:48:45 10/17/2024 18:22:15 Normal 55093960 Z34.92 Pt is here for a VENICE appointmen t. She is taking vitamins. She has no complaints or questions. Reports feeling movement. Denies vaginal bleeding, abdominal cramps, N/V, contractio ns, or LOF. Denies headache, vision changes, swelling of hands or face, and epigastric pain. Discussed PTL and precaution s given. There are no identifiab le risk factors for pre-term labor. screening for malformation 839259203 Z36.3 screening 3087 07318 Z36.86 Gestation period, 20 weeks 87642889 Z3A.20 Health Concerns Section Related Observation LastModified by Organization Detai ls LastModified Time None Recorded Concern Status LastModified by Organization Details LastModified Time None Recorded Advance Directives Directive None Recorded Payers Insurance Date Sequence Insurance Name Policy Number Policy Ramirez Covered Member ID Ramirez Member ID Guarantor Name 07/25/2024 1 [facility] Cori Donald [id number] Cori Donald 10/19/2024 1 [facility] (MEDICAID REPLACEMENT - HMO) [id number] James Donald [id number] Cori Donald Notes Date Note Type Note Provider Name and Address Organization Details Recorded Time 10/29/2023 text/html Pt presents to office to discuss infertility. Pt is a [id number]. Delivery Hx: G1 - SAB in 12/2010. G2 - Primary C/S for FTP at 41 wks in 03/2013. G3 - at 38 6/7 in 03/2016. Last miscarriage one year ago. Last Pap: 09/2022 NILM. Pt has a h/o Chlamydia. Last STD testing 08/2022 GCCT WNL, Serum testing NRx4. No concerns for STDs but would like to do culture and serum testing today. Pt reports trying to conceive under last 6 months and wanted to discuss if any testing needs to be done. Her partner has not children of his own. She also wanted to bring up bloating and lower back pain that has been ongoing for about 2 yrs. She states after gall bladder removed 2020 d/t back pain and throwing up and gall stones, still bloating. Her primary care provider would not give a GI referral for her. Not currently taking a vitamin. [facility] [address] [facility], [place], [address], [facility] 10/29/2023 14:14:25 07/25/2024 text/html Pt presents for OB confirmation visit. Pt's LMP: _05/31/2024 . Last Pap: 09/2022 NILM. Pt has started taking vitamins daily. Pt denies bleeding, cramping, or n/v. Pt has no other concerns. PT LEFT WITHOUT BEING SEEN BY PROVIDER, BUT HAD U/S TODAY. [facility] [address] [facility], [place], [address], [facility] 07/25/2024 13:49:31 08/02/2024 text/html Patient is here today for a routine OB visit. She is currently at 9.1 weeks gestation. vitamins: yes She has not felt movement. She denies any complaints of the presence of vaginal bleed, leaking fluid, abdominal cramps, nausea, vomiting, headache or visual disturbances. JOHN STARKEY, BEE [address] [place], [address], [facility] 08/02/2024 12:37:08 09/23/2024 text/html Patient is here today for a routine OB visit. She is currently at 16.4 weeks gestation. vitamins: no She has not felt movement.She denies any complaints of the presence of vaginal bleed, leaking fluid, abdominal cramps, nausea, vomiting, headache or visual disturbances. No concerns Sri Sims CNM [address] [place], [address], [facility] 09/23/2024 14:42:22 10/17/2024 text/html Patient is here today for a routine OB visit. She is currently at 20.0 weeks gestation. vitamins: yes She has felt movement.She denies any complaints of the presence of vaginal bleed, leaking fluid, abdominal cramps, nausea, vomiting, headache or visual disturbances. Patient has no concerns today LELA MAKI NP [address] [place], [address], [facility] 10/20/2024 16:26:37 OBGyn Episode Ob Episode Information Episode Created Date Number of Fetuses Patient Bloodtype Patient rh Status Prepregnancy Weight lbs Domestic Partner Domestic Partner Phone Father Name Parachute Line Tier Status 07/05/19 22 1 CLOSED Fetus Data First Name Last Name Admitted to NICU Weight (g) Sex Living Outcome Pediatric Complications Fetus ID Race Codes Race Delivery Type , Spontane ous [id number] Taran Calculation Initial Taran Date Initial Exam Date Initial Exam Provider Initial Ultrasound Date Last Menstrual Period Date Ultra Sound Weeks Gestation 0 Eighteen To Twenty Week Taran Update Ultra Sound Date Fundal Height At Umbil Quickening Date Ultra Sound Latest Weeks Gestation Final Taran Confirmed By Final Taran Confirmed Date Final Taran Date Ultra Sound Latest Days Gestation 0 0 Menstrual History Last Menstrual Date Menses Monthly On Bcp Conception Prior Menses Frequency Hcg Plus Date Menarche Onset Age Delivery Information Delivery Date Delivery Type Labor Anesthesia Weeks Gestation Incision Type Labor Labor Length Hrs Delivered By Post Complications Tubal Sterilization Discharge Date Comments 1 None false D&C. Discharge Information Feeding Method Contraceptive Method Maternal HG B and HCT Levels Ob Episode Information Episode Created Date Number of Fetuses Patient Bloodtype Patient rh Status Prepregnancy Weight lbs Domestic Partner Domestic Partner Phone Father Name Parachute Line Tier Status 07/05/19 22 1 CLOSED Fetus Data First Name Last Name Admitted to NICU Weight (g) Sex Living Outcome Pediatric Complications Fetus ID Race Codes Race Delivery Type 3175.14 4 M Full Term [id number] Primary Taran Calculation Initial Taran Date Initial Exam Date Initial Exam Provider Initial Ultrasound Date Last Menstrual Period Date Ultra Sound Weeks Gestation 0 Eighteen To Twenty Week Taran Update Ultra Sound Date Fundal Height At Umbil Quickening Date Ultra Sound Latest Weeks Gestation Final Taran Confirmed By Final Taran Confirmed Date Final Taran Date Ultra Sound Latest Days Gestation 0 0 Menstrual History Last Menstrual Date Menses Monthly On Bcp Conception Prior Menses Frequency Hcg Plus Date Menarche Onset Age Delivery Information Delivery Date Delivery Type Labor Anesthesia Weeks Gestation Incision Type Labor Labor Length Hrs Delivered By Post Complications Tubal Sterilization Discharge Date Comments 3 41 false FTP Discharge Information Feeding Method Contraceptive Method Maternal HG B and HCT Levels Ob Episode Information Episode Created Date Number of Fetuses Patient Bloodtype Patient rh Status Prepregnancy Weight lbs Domestic Partner Domestic Partner Phone Father Name Parachute Line Tier Status 08/30/19 23 1 CLOSED Fetus Data First Name Last Name Admitted to NICU Weight (g) Sex Living Outcome Pediatric Complications Fetus ID Race Codes Race Delivery Type 2806.37 [id number] F Full Term [id number] Taran Calculation Initial Taran Date Initial Exam Date Initial Exam Provider Initial Ultrasound Date Last Menstrual Period Date Ultra Sound Weeks Gestation 0 Eighteen To Twenty Week Taran Update Ultra Sound Date Fundal Height At Umbil Quickening Date Ultra Sound Latest Weeks Gestation Final Taran Confirmed By Final Taran Confirmed Date Final Taran Date Ultra Sound Latest Days Gestation 0 0 Menstrual History Last Menstrual Date Menses Monthly On Bcp Conception Prior Menses Frequency Hcg Plus Date Menarche Onset Age Delivery Information Delivery Date Delivery Type Labor Anesthesia Weeks Gestation Incision Type Labor Labor Length Hrs Delivered By Post Complications Tubal Sterilization Discharge Date Comments 12/11/201 6 38.6 Spont Labor. Pt opted for TOLAC. Successfu l . Delivered at [facility]. Discharge Information Feeding Method Contraceptive Method Maternal HG B and HCT Levels Ob Episode Information Episode Created Date Number of Fetuses Patient Bloodtype Patient rh Status Prepregnancy Weight lbs Domestic Partner Domestic Partner Phone Father Name Parachute Line Tier Status 07/27/19 25 1 O Positive OPEN Fetus Data First Name Last Name Admitted to NICU Weight (g) Sex Living Outcome Pediatric Complications Fetus ID Race Codes Race Delivery Type [id number] Problems Problem Notes Will need pap PP Problem Name Start Date End Date Resolution Snomed Code Not e Mixed anxiety and depressive disorder 08/02/2024 [id number] Rx for f luoxetine 20gm Mixed bipolar affective disorder, mild 08/02/2024 880147471 Restarted lamot ragine based on starting regime on epocrates. 25mg every day x 2 weeks and then increase to 50mg every day. Varicella non-immune 08/04/2024 03220933 9 Past history of section 08/02/2024 525076496 G1 at [place] f or intolerance after dilating 8cm.G2 delivery at [facility] due to living close-no complications Taran Calculation Initial Taran Date Initial Exam Date Initial Exam Provider Initial Ultrasound Date Last Menstrual Period Date Ultra Sound Weeks Gestation 07/26/2024 07/25/2024 05/30/2024 8 Eighteen To Twenty Week Taran Update Ultra Sound Date Fundal Height At Umbil Quickening Date Ultra Sound Latest Weeks Gestation Final Taran Confirmed By Final Taran Confirmed Date Final Taran Date Ultra Sound Latest Days Gestation 0 03/06/20 25 0 Pre-arturo Flowsheet Flowsheet Date 08/02/2024 Miner Score Blood Edema Fundus Height Fundus Units Glucose Ketones Leukocytes Nitrite Labor Signs Protein Cervic Dilation Cervic Effacement Cervic Station none none none neg Type Weight in lbs Pre/Post Dialysis Refused Weight 137.189183819978 BP Diastolic BP Location Tested BP Systolic BP Type 72 118 Fetus Heart Rate Present A 172 Present Fetus Movement A No Comments 1st OB visit. NOB collected today. NIPT to be collected at next visit. Pt declines pap, requesting to be PP. Last pap 09/2022 NILM. Confirmation BMI 25.1. Hx of C/S x1 and x1. Hx of anxiety. bipolar mixed. Patient very frustrated at today's visit with all the mix up from her confirmation and 1st OB being scheduled to early. Pt tearful at today's visit. Hx of medication for mental health that she stopped when she found out she was . Consulted with Dr. Smith. Will restart medication today based on dosing regime recommended and patient will follow up in 2 weeks for evaluation. Pt no longer seeing provider that was managing her medication due to not liking them. Flowsheet Date 09/23/2024 Miner Score Blood Edema Fundus Height Fundus Units Glucose Ketones Leukocytes Nitrite Labor Signs Protein Cervic Dilation Cervic Effacement Cervic Station none neg Type Weight in lbs Pre/Post Dialysis Refused With clothes [id number] BP Diastolic BP Location Tested BP Systolic BP Type 60 108 sitting Fetus Heart Rate Present A 140 Fetus Movement A No Comments pt very frustrated today due to scheduling US and not being time for anatomy US. Tried to de-escilate situation, no ob concerns Flowsheet Date 10/17/2024 Miner Score Blood Edema Fundus Height Fundus Units Glucose Ketones Leukocytes Nitrite Labor Signs Protein Cervic Dilation Cervic Effacement Cervic Station Type Weight in lbs Pre/Post Dialysis Refused [id number] BP Diastolic BP Location Tested BP Systolic BP Type 70 112 sitting Fetus Heart Rate Present A 155 Present Fetus Movement A Yes Comments Anatomy complete. Low laying placent 1.9 cm from os. Normal AFV and CL. US to be repeated with next appt. RTC in 4 wks. Menstrual History Last Menstrual Date Menses Monthly On Bcp Conception Prior Menses Frequency Hcg Plus Date Menarche Onset Age 0205/30/2024 Delivery Information Delivery Date Delivery Type Labor Anesthesia Weeks Gestation Incision Type Labor Labor Length Hrs Delivered By Post Complications Tubal Sterilization Discharge Date Comments Discharge Information Feeding Method Contraceptive Method Maternal HG B and HCT Levels Ob Episode Information Episode Created Date Number of Fetuses Patient Bloodtype Patient rh Status Prepregnancy Weight lbs Domestic Partner Domestic Partner Phone Father Name Parachute Line Tier Status 07/26/19 25 1 CLOSED Fetus Data First Name Last Name Admitted to NICU Weight (g) Sex Living Outcome Pediatric Complications Fetus ID Race Codes Race Delivery Type Demise [id number] Taran Calculation Initial Taran Date Initial Exam Date Initial Exam Provider Initial Ultrasound Date Last Menstrual Period Date Ultra Sound Weeks Gestation 0 Eighteen To Twenty Week Taran Update Ultra Sound Date Fundal Height At Umbil Quickening Date Ultra Sound Latest Weeks Gestation Final Taran Confirmed By Final Taran Confirmed Date Final Taran Date Ultra Sound Latest Days Gestation 0 0 Menstrual History Last Menstrual Date Menses Monthly On Bcp Conception Prior Menses Frequency Hcg Plus Date Menarche Onset Age Delivery Information Delivery Date Delivery Type Labor Anesthesia Weeks Gestation Incision Type Labor Labor Length Hrs Delivered By Post Complications Tubal Sterilization Discharge Date Comments 4 Discharge Information Feeding Method Contraceptive Method Maternal HG B and HCT Levels
[2024-10-23 10:51] LABS: Add Urine Microscopic? NO; Appearance Urine Clear (Clear); Glucose Urine UA Negative (Negative); Leukocyte Esterase Ur Negative LEU/UL (Negative); Nitrate Urine Negative (Negative); Specific Grav Ur 1.018 (1.001-1.035)
--- NOTE | 2024-11-15 16:45 | PM.OBTRLD ---
OB - Triage/Final Diagnosis Visit Information Comments/Additional reasons for admission: I have assessed the risk for this patient, James Donald, and determined that she would benefit from observation care. Evaluation Laboratory results: Laboratory Tests 10/23/24 10:42 Urine Color Yellow Urine Appearance Clear Urine pH 7.5 Ur Specific [place] 1.018 Urine Protein Negative Urine Glucose (UA) Negative Urine Ketones Negative Ur Blood (Man) Negative Urine Nitrate Negative Urine Bilirubin Negative Urine Urobilinogen 0.2 Leukocyte Esterase Rfl Negative Final Diagnosis (1) Decreased movement: Code(s): O36.8190 - Decreased movements, unspecified trimester, not applicable or unspecified Status: Acute (2) Abdominal pain: Code(s): R10.9 - Unspecified abdominal pain Status: Acute
== END 2024-10-23 12:03 | disposition home or self-care (01) ==
PROVIDERS: Admitting Provider Obstetrics & Gynecology; PCP Family Medicine; Visit Provider Obstetrics & Gynecology
DX: O36.8120 Decreased fetal movements, second trimester, not applicable or unspecified (principal); O26.892 Other specified pregnancy related conditions, second trimester; R10.9 Unspecified abdominal pain; Z3A.20 20 weeks gestation of pregnancy
CPT/HCPCS: 81003; G0378; G0379

== ENCOUNTER 2024-12-06 12:56 | Emergency (ER) | payer BC, SELFPAY ==
--- OUTSIDE RECORDS SUMMARY | 2024-12-06 13:05 | XMS_ITS | Patient Health Record ---
Author Organization [facility] Address [address] [facility] [address] [place] [address] Care Team Providers Care Skill Labor Name Role Phone Dexter Sinha Unavailable [phone] Reason For Referral No Information Medications Medication SIG (Take, Route, Frequency, Duration) Notes Start Date End Date Status Promethazine HCl 25 MG Tablet Oral Active lamoTRIgine 25 MG Tablet Oral Active hydrOXYzine HCl 25 MG Tablet Oral Active Ibuprofen 800 MG Tablet Oral Active Escitalopram Oxalate 20 MG Tablet Oral Active Doxycycline Hyclate 100 MG Tablet Oral Active Escitalopram Oxalate 10 MG Tablet Oral Active Plan Of Treatment No Information
--- OUTSIDE RECORDS SUMMARY | 2024-12-06 13:05 | XMS_ITS | Clinical Summary ---
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
[2024-12-06 13:14] VITALS: BP 110/82; PULSE 80; RESP 16; TEMP 36.6; O2SAT 100
[2024-12-06 13:55] LABS: Add Urine Microscopic? YES; Appearance Urine Cloudy (Clear); Glucose Urine UA Negative (Negative); Leukocyte Esterase Ur 1+ LEU/UL (Negative); Need Manual Microscopic Reviewed; Nitrate Urine Negative (Negative); Non Pathogenic Casts 0-2; Specific Grav Ur 1.031 (1.001-1.035)
--- NOTE | 2024-12-06 14:22 | ED.FEMALEGU ---
HPI - Female Genitourinary General Chief complaint: Urogenital-Female Stated complaint: hematuria Time Seen by Provider: 12/06/24 13:40 History of Present Illness HPI Narrative: This is a 29-year-old female who presents to the ED for a urine color changes. Patient states that starting yesterday, she had onset of orange-colored urine. Denies dysuria, blood in urine, urgency. Her last admit scan was a month ago and was normal. She has an appoint with her OB next week. She states that she called her office regarding her symptoms and they advised her to be seen in urgent care or here for further evaluation. Patient denies any abdominal pain, fevers, chills, chest pain, shortness of breath, vaginal bleeding, discharge. Related Data Home Medications ?Medication ?Instructions ?Recorded ?Confirmed ?Last Taken ?Type lamotrigine 100 mg tablet 100 mg PO DAILY 10/23/24 10/23/24 10/20/24 History vit no.95-ferrous 1 tablet PO DAILY 10/23/24 10/23/24 10/22/24 History fumarate 28 mg-folic acid 800 mcg tablet ( Multivitamins) Allergies Allergy/AdvReac Type Severity Reaction Status Date / Time cefazolin Allergy Severe Swelling Verified 12/06/24 13:18 Review of Systems Review of Systems: Gen.: Denies fevers or chills Eyes: Denies eye pain or visual change ENT: Denies congestion Respiratory: Denies shortness of breath or cough CV: Denies chest pain or palpitations GI: Denies abdominal pain nausea, emesis or diarrhea denies burning, urgency, frequency or hematuria Musculoskeletal: Denies back pain or muscle pain Neuro: Denies numbness, tingling, weakness or focal weakness Skin: Denies rash Except as documented, all other systems reviewed and negative PMFSH Social History Social History Do You Feel Safe in your Home?: Yes Lack of Transportation: No Lack of Food: Never True Current Housing: I Have Housing Concerned About Future Housing: No Difficulty Paying Gas/Electric Bills: No Difficulty Paying for Meds: No Currently Unemployed: YES Education: High School Diploma/GED Difficulty w/ Childcare or Family Care: No Exam Narrative: APPEARANCE: No acute distress, nontoxic, resting in bed EYES: EOMI HEENT: Normocephalic, atraumatic, OMM RESPIRATORY: No respiratory distress Clear to auscultation bilaterally with no rhonchi wheezing or rales. CARDIOVASCULAR: Regular rate and rhythm without murmurs rubs or gallops. ABDOMINAL: Soft, nontender, nondistended, no rebound or guarding. Uterus palpable above the umbilicus. Nontender. MUSCULOSKELETAl: Moves all extremities. No clubbing, cyanosis or edema. NEURO: Awake and alert. Following commands, speech normal, no focal deficits SKIN:: Warm, dry. No rashes lesions or abrasions PSYCHIATRIC: Normal affect/mood, Course Vital Signs Vital signs: Vital Signs Temperature 97.8 F 12/06/24 13:14 Pulse Rate 80 12/06/24 13:14 Respiratory Rate 16 12/06/24 13:14 Blood Pressure 110/82 12/06/24 13:14 Pulse Oximetry 100 12/06/24 13:14 Oxygen Delivery Room Air 12/06/24 13:14 Temperature 97.8 F 12/06/24 13:14 Pulse Rate 80 12/06/24 13:14 Respiratory Rate 16 12/06/24 13:14 Blood Pressure 110/82 12/06/24 13:14 Pulse Oximetry 100 12/06/24 13:14 Oxygen Delivery Room Air 12/06/24 13:14 MDM - Female Genitourinary MDM Narrative Medical decision making narrative: 29-year-old female approximately 27 weeks ultrasound presented to the ED for urinary changes. Uterus is palpable and nontender. UA was obtained and was consistent with a UTI. Patient has prior allergy to Ancef so she will be started on Macrobid. Patient was seen and evaluated by L and D nurse and fetus good heart tones. Patient is deemed appropriate for discharge at this time. She was advised to follow-up with her research program assistant next week as scheduled. Patient was agreeable to plan. Given strict return precautions. Lab Data Labs: Lab Results 12/06/24 Range/Units 13:23 Urine Color Dark yellow (Yellow) Urine Appearance Cloudy H (Clear) Urine pH 6.0 (5.0-9.0) Ur Specific [place] 1.031 (1.001-1.035) Urine Protein 1+ H (Negative) mg/dL Urine Glucose (UA) Negative (Negative) mg/dL Urine Ketones 1+ H (Negative) mg/dL Ur Blood (Man) Negative (Negative) Urine Nitrate Negative (Negative) Urine Bilirubin Negative (Negative) Urine Urobilinogen 1.0 (<2.0) mg/dL Add Ur Microanalysis Reviewed Leukocyte Esterase Rfl 1+ H (Negative) JOHNNY/UL Urine RBC 0-2 (0-2) /hpf Urine WBC 11-20 H (0-3) /hpf Ur Squamous Epith Cells Many H (Few) /hpf Calcium Oxalate Crystal Present (None) /hpf Urine Bacteria 1+ H /hpf Urine Casts 0-2 Discharge Plan Discharge Clinical Impression: Urinary tract infection Qualifiers: Urinary tract infection type: acute cystitis Hematuria presence: without hematuria Qualified Code(s): N30.00 - Acute cystitis without hematuria Patient Disposition: Home Condition: Stable Instructions: Antibiotic Form, Urinary Tract Infection in (ED) Patient Language: Polish Prescriptions: New nitrofurantoin monohyd/m-cryst [Macrobid] 100 mg capsule 100 mg PO Q12H 5 Days Qty: 10 0RF Rx Instructions: must administer with a meal/food No Action lamotrigine 100 mg tablet 100 mg PO DAILY PNV no.95-ferrous fumarate-FA [ Multivitamins] 28 mg iron- 800 mcg tablet 1 tablet PO DAILY Follow-up/Referrals: Matt Mills MD [Primary Care Provider, Family Practice]
--- NOTE | 2024-12-06 15:06 | PC.NURSE ---
monitoring performed by this RN in the ED from [id number]. Baseline 145, moderate variability, no decelerations, 10x10 accelerations present. No contractions noted on toco or per pt.
== END 2024-12-06 15:04 | disposition home or self-care (01) ==
LOC: ANHED 14:19
PROVIDERS: Emergency Medicine; Emergency Provider Student in an Organized Health Care Education/Training Program; PCP Family Medicine
DX: O23.12 Infections of bladder in pregnancy, second trimester (principal); N30.00 Acute cystitis without hematuria; Z3A.27 27 weeks gestation of pregnancy
CPT/HCPCS: 81001; 99283